=== PATIENT | male | born 1990 | race Caucasian/White ===

== ENCOUNTER 2021-01-26 14:20 | Inpatient (IN) | payer BC, SELFPAY ==
[2021-01-26 14:26] VITALS: BP 159/98; PULSE 140; RESP 20; TEMP 37.1; O2SAT 96
[2021-01-26] MEDS: LORazepam 2 mg Tablet PO ×2 (14:41→17:25)
--- NOTE | 2021-01-26 14:44 | PC.NURSE ---
One time ATIVAN Patient just arrived by ambulance from another facility and was very anxious, shaking and paranoid. One time dose 2 mg Ativan po given.
--- NOTE | 2021-01-26 15:45 | PM.NHP ---
Providers/Chief Complaint Admitting Physician: Brayan Conteh DO Chief Complaint: ANXIETY/DEPRESSION/OD HPI NPU History of Present Illness Donny Casiano is a 30 year old male with unclear past psychiatric history presented to an [facility] emergency department after overdosing intentionally on multiple medications to include fluoxetine, phentermine, another diet pill/medication, Topamax, hydroxyzine, and Benadryl. Patient was observed for 24 hours at [facility] emergency department with work-up remarkable for tachycardia, elevated BP, EKG did not demonstrate any prolonged QT, CBC, chemistry unremarkable, cardiac enzymes unremarkable. Urine drug screen was positive for cannabinoids. Patient's history is remarkable for seeing his primary care a couple days prior to presentation at which time he was prescribed fluoxetine. Patient had also gone to the emergency department prior to the referring hospital at which time he was evaluated and discharged. Patient is a difficult historian secondary to restlessness, stuttering, automatisms. Patient's history was mostly gathered by yes/no questions to the patient as well as brief responses and collateral information gathered from his , Leela, by telephone. Patient and patient's report that the patient had been reporting depressive symptoms for several weeks and states that he had previously been treated for depressive and anxiety symptoms but denies any past treatment by psychiatrist and denies any past psychiatric hospitalizations. Both the patient and his denies any past suicide attempts. Patient's reports that the patient has multiple family and life stressors. Patient states that he had not been feeling well and initially was taking the medication to get high but states that he subsequently took more medication with the intent of not being here. Patient states that he had been hearing voices after he started toxic ingestion. states that this may have happened over a couple of days of taking various pills. Patient denies having any psychotic symptoms at baseline. Psychiatric review of systems is negative otherwise. Review of Systems General: Reports: 10 or more systems reviewed and unremarkable except in HPI and below Meds NPU Allergies Allergy/AdvReac Type Severity Reaction Status Date / Time No Known Drug Allergies Allergy Unknown Verified 01/26/21 14:25 [facility] NPU Other Psychiatric History: Other Psychiatric History: Per HPI, denies any treatment by a psychiatrist, does report seeing primary care for depressive symptoms, treated with fluoxetine Denies any history of psychiatric hospitalization Denies any history of suicide attempt or self-harm behavior Mental Status Exam MSE Comments: Patient is extremely restless, jittery, unshaven, unkempt, disheveled, poor eye contact, fair rapport, patient's easily startled by loud noises Psychomotor activity is somewhat increased, no agitation Speech is halting, stuttering, not pressured I am scared, congruent affect, not labile Alert and oriented to person, place, time Memory and concentration are poor per interview Intellectual functioning is difficult to assess at this time Thought process, disjointed, linear but brief, no looseness of associations, no flight of ideas Thought content, paranoid, does not appear to be attending to any internal stimuli, no suicidal or homicidal ideation Insight and judgment appear to be limited Vitals/I&O/Wt Last Vital Signs Temp 98.7 F 01/26/21 14:26 Pulse 140 H 01/26/21 14:26 Resp 20 H 01/26/21 14:26 BP 159/98 01/26/21 14:26 Pulse Ox 96 01/26/21 14:26 Weight last 48 hrs Weight 136.078 kg A&P Assessment and plan (1) Overdose: Status: Acute Qualifiers: Encounter type: sequela Injury intent: intentional self-harm Qualified Code(s): T50.902S - Poisoning by unspecified drugs, medicaments and biological substances, intentional self-harm, sequela (2) Depression: Status: Acute Qualifiers: Depression Type: unspecified Qualified Code(s): F32.9 - Major depressive disorder, single episode, unspecified (3) Anxiety: Status: Acute (4) Cannabis abuse: Status: Acute Additional A&P Information Patient with unclear past psychiatric history recently seen by primary care for depressive and anxiety symptoms, patient with toxic ingestion of multiple anticholinergic medications as well as a couple stimulant weight loss medications. Patient states that he initially was trying to get high but then states that he took subsequent amounts as suicidal gesture. Report of ongoing depressive symptoms but currently denying any suicidal ideation. Patient would likely benefit from observation and holding any psychotropic medication while recovering from sequela of overdose. EKG from outlying emergency department did not demonstrate QT prolongation, labs did not demonstrate any metabolic disturbances. We will continue to monitor with labs, subsequent EKG INVOLUNTARY ADMIT to inpatient psychiatry Close observation CBC, CMP Ativan 2 mg by mouth now for restlessness, anxiety Encourage patient to rest Attestations NPU Medical Necessity Statement*: Psychiatric hospitalization is indicated at this time for observation for any suicidal ideation or behaviors, coordination for safe discharge Anticipate hospital stay to exceed 2 midnights Time Spent in Patient Care: Greater than 35 minutes (>than 50% of time spent in counselling and/or direct pt care on unit). Coding Level of Care Code Acute Custom Tailor for Lynn Slater Diagnoses Overdose T50.902S Encounter type: sequela Injury intent: intentional self-harm Depression F32.9 Depression Type: unspecified Anxiety F41.9 Cannabis abuse F12.10
[2021-01-26 17:02] LABS: Basophils # 0.1 10^3/uL (0.0-0.1); Basophils % 0.3 %; Eosinophils # 0.1 10^3/uL (0.0-0.8); Eosinophils % 0.5 %; Hematocrit 51.8 % (42.0-52.0); Lymphocytes # 1.5 10^3/uL (0.8-4.8); Lymphocytes % 9.5 %; Mean Corpuscular HGB Conc 34.7 g/dL (30.0-36.0); Mean Corpuscular Volume 89.2 fL (80-94); Mean Platelet Volume 12.4 fL (7.4-10.4); Monocytes # 1.2 10^3/uL (0.2-0.9); Neutrophils # 12.55 10^3/uL (1.8-7.7); Neutrophils % 80.8 %; Nucleated Red Blood Cells % 0 %; Platelet Count 198 10^3/cmm (130-400); Red Blood Count 5.81 10^6/uL (4.1-5.3); Red Cell Distribution Width 12.8 % (12.1-15.1); White Blood Count 15.5 10^3/uL (4.0-10.0)
[2021-01-26 17:36] LABS: Alanine Aminotransferase 28 U/L (0-41); Albumin Level 4.9 g/dL (3.5-5.2); Alkaline Phosphatase 76 IU/L (40-130); Anion Gap 20.1 (5-19); Aspartate Amino Transferase 29 U/L (0-40); Blood Urea Nitrogen 8 mg/dL (6-20); Calcium 9.6 mg/dL (8.5-10.5); Carbon Dioxide 23 mmol/L (22-29); Chloride 100 mmol/L (98-107); Creatinine Clr Calc Pharmacy 150.7153; Glomerular Filtration Rate 97.8 mL/min (90-130); Glucose 92 mg/dL (65-115); Osmolality Calculated 286 mOsm/kg (285-295); Potassium 4.1 mmol/L (3.5-5.1); Sodium 139 mmol/L (136-145); Total Bilirubin 2.1 mg/dL (0.15-1.2); Total Protein 7.9 g/dL (6.6-8.7)
[2021-01-26 19:39] VITALS: PULSE 114; RESP 17; TEMP 36.7; O2SAT 96
--- NOTE | 2021-01-26 20:00 | PC.NURSE ---
Pt condition Placed patient with a 1:1 sitter, pt cut his right 1st finger, and scratched up his left anterior forearm after digging out a piece of metal from the window frame. Nurse rylan saavedra, cleaned the window sill, placed a bandage on finger, no dressing needed for forearm, physician notified.
--- NOTE | 2021-01-26 22:10 | PC.NURSE ---
Pt behavior Pt displays seizure-like activity while with 1:1 in day room. Pt unable to control his head, arm, or body movements that seem to spasm, paranoid behavior, anxiety noted, diaphoretic, nauseated, tachypnea, RR 22, BP 159/98. pr 119. Physician notified, orders obtained for 1mg PO/IM Ativan q4h prn. Order placed, med nurse notified, and increasing observation from nursing staff until patient is more stable. Heart and Lung sounds are wnl at this time. Hx: Pt overdosed on several medications appx 3 days ago. Benedryl, Topamax, Phentomine, Zoloft, Prozac, and Hydroxyzine. No prior hx of psych placement or overdose attempts in the past pt states, I can not control my impulses, I saw the medications there, and I just kept taking them. Pt displayed impulsive actions earlier this evening by cutting himself with a piece of window metal shards he found in the sill. Tiny shaving. Pt restated this same terminology. I just saw it and could not stop, Im sorry. Pt states, Im afraid to eat anything, I don't want to gain any more weight. I will vomit it up if I eat it, I have been doing this a long time now. Pt has had three 16oz glasses of ice water since 1900. Maintaining hydration is a priority for this pt. Physician aware of pt condition.
[2021-01-26] MEDS: LORazepam 2 mg/mL INJ 1 mL 1 MG IM (22:20)
[2021-01-26 23:10] VITALS: BP 149/94; PULSE 134; RESP 22; TEMP 36.9; O2SAT 96
[2021-01-26] MEDS: blistex lip oint 7 gm Tube 1 APPLIC TOPICAL (23:30)
[2021-01-26] MEDS: ondansetron 4 MG Tablet PO (23:30)
--- NOTE | 2021-01-27 00:44 | PC.NURSE ---
At 2200 on 01/26/21, ARIANNA CAMACHO, found patient sitting in [address] foyer area looking out the window while in a tearful and anxious state. Pt confirmed SI, confirmed intentional injury to himself. Pt found a metal shard in the window sill caulking from the installation of plexiglass to the interior window installed for patient safety to cover the glass windows. It was a very tiny sliver of metal shaving, the patient surrrendered it to nurse without incident while apologizing. Pt stated, I can't help it, I had to do it. Nurse examined patient to see if there were any injuries to his skin. Two areas were affected by this event. The first is the anterior side of his right 1st finger, pt cut the finger, it was bleeding, this injury was cleaned and covered with a small bandage. Re-examined an hour later, bandage in place, no sign of infection noted. The second injury was to the anterior side of the left forearm, the patient scratched his arm several times, these are very superficial.No bandage applied at that time. Obtained a 1:1 PSA to sit with this patient, he continues to display anxiety and uncontrolled urges to harm himself. Pt was a direct admit who came to our NPU unit after intentional drug overdose. Pt impulsativity to self harm is not controlled at this time. Physician, Dr. Brayan Conteh,was informed of pt behavior, orders were received, and complete by nursing staff. Customs Port Director, Karen, was informed of event also . At 2330, Nursing staff applied nonstick pad with tegaderm coving to both of the anterior wrists, ID band, Fall band, and allergy band removed from pt wrists, he was attempting to cut himself with these bands. They are on the clipboard with the PSA sitter. Pt continues efforts to harm himself.
[2021-01-27 00:47] VITALS: BP 145/94; PULSE 99; RESP 18; TEMP 36.9; O2SAT 95
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
--- NOTE | 2021-01-27 03:01 | PC.NURSE ---
Approximately 2220 given Ativan 1 mg IM for severe anxiety, excess physical activity, jerking movements. The symptoms continued over several hours with decreasing intensity until he was able to go to bed to rest around 0145. He was given Zofran 4 mg po at 2330 for nausea symptoms. The nausea resolved after one hour.
[2021-01-27] MEDS: LORazepam 1 mg Tablet PO ×4 (05:54→22:15)
--- NOTE | 2021-01-27 05:54 | PC.NURSE ---
Ativan 1Mg PO given this morning for anxiety/agitation. Pt reports feeling less anxious than on admission. Jerky movements are less, pt rested better last night. Reports less paranoia.
[2021-01-27 05:55] VITALS: BP 157/103; PULSE 89; RESP 17; TEMP 36.2; O2SAT 100
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
--- NOTE | 2021-01-27 09:13 | ECG_ITS ---
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
--- NOTE | 2021-01-27 09:15 | P.PN_ITS ---
Subjective NPU Subjective: Interval history: Patient continues to be restless, shaky, stuttering but much easier to understand and much more controlled Reports some depressive symptoms, states that he has been having obsessive thoughts, especially about medications stating that he is concerned that if he is prescribed any medication that he may try to take too much of it Reports passive suicidal thoughts since last evaluation and had tried to scratch himself with a piece of metal he found on the windowsill in his room and was placed on one-to-one observation States that he had heard some voices while he was at the other hospital but currently denying any interval auditory or visual hallucinations, does describe some paranoia Patient has been given interval as needed Ativan 2 mg IM because he was reporting some nausea last evening Mental Status Exam MSE Comments: Patient sitting in a wheelchair in a foyer next to his room with a sitter, good eye contact, wearing hospital scrubs, unshaven, disheveled Psychomotor activity is restless, no agitation Speech continues to be halting with stuttering, normal volume, clear articulation, not pressured I feel a little better, constricted affect, not labile Alert and oriented to person, place, time, situation Memory and concentration appear to be fair per interview Thought process, linear but brief, no flight of ideas, no looseness of associ ations Thought content, some paranoia with no stated delusions, does not appear to be attending to any internal stimuli, some passive suicidal thoughts with no active intent or plan, no homicidal ideation Insight and judgment appear to be fair to intact Vitals/I&O/Wt Last Vital Signs Temp 97.2 F L 01/27/21 05:55 Pulse 89 01/27/21 05:55 Resp 17 01/27/21 05:55 BP 157/103 01/27/21 05:55 Pulse Ox 100 01/27/21 05:55 Weight last 48 hrs Weight 116.573 kg Weight 136.078 kg Data NPU : 01/26/21 16:52 01/26/21 16:52 A&P Assessment and plan (1) Overdose: Status: Acute Qualifiers: Encounter type: sequela Injury intent: intentional self-harm Qualified Code(s): T50.902S - Poisoning by unspecified drugs, medicaments and biological substances, intentional self-harm, sequela (2) Depression: Status: Acute Qualifiers: Depression Type: unspecified Qualified Code(s): F32.9 - Major depressive disorder, single episode, unspecified (3) Anxiety: Status: Acute (4) Cannabis abuse: Status: Acute Additional A&P Information Patient continues to be restless, stuttering with halting speech, reports sleeping some last night reports that he feels much improvement over how he felt initially at other hospital, labs with slightly elevated white count, renal function appears to be unremarkable, patient tolerating fluids and has been drinking water although reports feeling somewhat nauseous and not eating food but has been encouraged to eat some food in small amounts. Patient appears to have up sessions and depressive symptoms but will hold off on starting any antidepressant until his current sequela from toxic ingestion subsides and approaches baseline. Continue to provide symptomatic care for restlessness, anxiety from toxic ingestion EKG to monitor for any arrhythmia, QT Encouraged patient to participate in unit milieu, group sessions CONTINUE one-to-one Involuntary Hold Information 96 Hour Hold: 96 Hour Involuntary Admission: No Attestations NPU Medical Necessity Statement*: Continues to require psychiatric hospitalization for toxic ingestion, monitoring, coordination for safe discharge Coding Level of Care Code Acute Explosive Specialist for [facility] 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
[2021-01-27 09:57] LABS: Glucose Point of Care 107 mg/dL (70-110)
[2021-01-27 10:03] LABS: Basophils # 0.1 10^3/uL (0.0-0.1); Basophils % 0.5 %; Eosinophils # 0.1 10^3/uL (0.0-0.8); Eosinophils % 0.5 %; Hematocrit 50.2 % (42.0-52.0); Hemoglobin 17.1 g/dL (11.7-16.6); Lymphocytes # 0.8 10^3/uL (0.8-4.8); Lymphocytes % 7.7 %; Mean Corpuscular HGB Conc 34.1 g/dL (30.0-36.0); Mean Corpuscular Hemoglobin 30.6 pg (28.0-34.0); Mean Platelet Volume 11.9 fL (7.4-10.4); Monocytes % 9.7 %; Neutrophils # 8.27 10^3/uL (1.8-7.7); Neutrophils % 80.5 %; Nucleated Red Blood Cells % 0 %; Platelet Count 182 10^3/cmm (130-400); Red Blood Count 5.58 10^6/uL (4.1-5.3); Red Cell Distribution Width 12.5 % (12.1-15.1); White Blood Count 10.3 10^3/uL (4.0-10.0)
[2021-01-27 10:31] LABS: Alanine Aminotransferase 27 U/L (0-41); Albumin Level 4.6 g/dL (3.5-5.2); Alkaline Phosphatase 74 IU/L (40-130); Anion Gap 20.6 (5-19); Aspartate Amino Transferase 28 U/L (0-40); Blood Urea Nitrogen 9 mg/dL (6-20); Calcium 8.8 mg/dL (8.5-10.5); Carbon Dioxide 22 mmol/L (22-29); Chloride 96 mmol/L (98-107); Creatine Phosphokinase 178 U/L (39-308); Creatinine Clr Calc Pharmacy 150.7153; Globulin 2.8 g/dL (1.3-4.6); Glomerular Filtration Rate 97.8 mL/min (90-130); Glucose 98 mg/dL (65-115); Osmolality Calculated 279 mOsm/kg (285-295); Potassium 3.6 mmol/L (3.5-5.1); Sodium 135 mmol/L (136-145); Total Bilirubin 2.2 mg/dL (0.15-1.2); Total Protein 7.4 g/dL (6.6-8.7)
--- NOTE | 2021-01-27 12:46 | PC.NURSE ---
Addendum entered by Gerald Chavez RN 01/27/21 13:03: PRN MED MED EFFECTIVE , PT MUCH LESS ANXIOUS, WILL CONTINUE TO MONITOR. Original Note: PRN MED PT GIVEN 1MG ATIVAN PO FOR ANXIETY, PT VERY ANXIOUS & NERVOUS, WILL CONTINUE TO MONITOR.
[2021-01-27 14:00] VITALS: BP 131/96; PULSE 96; RESP 18; TEMP 36.8; O2SAT 95
--- NOTE | 2021-01-27 16:42 | PC.NURSE ---
Patient offered prn ativan for anxiety, patient stated he would take it. Patient in day room sitting at the table, bouncing and shaking legs.
--- NOTE | 2021-01-27 17:40 | PC.NURSE ---
Patient resting calmly in angel by room , asked how he was feeling and how medication worked stated he feels better now.
[2021-01-27 22:00] VITALS: BP 136/98; PULSE 93; RESP 18; TEMP 37.2; O2SAT 98
[2021-01-27] MEDS: ondansetron 4 MG Tablet PO (22:19)
[2021-01-27 22:28] LABS: Glucose Point of Care 90 mg/dL (70-110)
[2021-01-28 06:00] VITALS: BP 132/89; PULSE 78; RESP 18; TEMP 36.5; O2SAT 96
[2021-01-28] MEDS: LORazepam 1 mg Tablet PO ×3 (07:42→22:34)
--- NOTE | 2021-01-28 11:39 | PM.NPN ---
Subjective NPU Subjective: Interval history: Patient continues to report some anxiety symptoms, transient depressive symptoms, paranoid ideation Patient was somewhat reluctant and evasive with interviewer but had shared with another staff member that he had been going out of state to a dispensary for marijuana in addition to taking many of his and his 's medication to help with his upset stomach. Patient initially stated that he had 8 some of his breakfast but then felt guilty and related that he had spit up his food into his coffee cup Mental Status Exam MSE Comments: Sitting in his room, poor eye contact, wearing hospital scrubs, nervous appearing Psychomotor activity is neither increased nor decreased, no agitation Speech continues to be halting with stuttering, normal volume, clear articulation, not pressured I feel anxious, constricted affect, not labile Alert and oriented to person, place, time, situation Memory and concentration appear to be fair per interview Thought process, linear, no flight of ideas, no looseness of associations Thought content, some paranoia with no stated delusions, no hallucinations, no homicidal ideation Insight and judgment appear to be fair to intact Vitals/I&O/Wt Last Vital Signs Temp 97.7 F 01/28/21 06:00 Pulse 78 01/28/21 06:00 Resp 18 01/28/21 06:00 BP 132/89 01/28/21 06:00 Pulse Ox 96 01/28/21 06:00 Weight last 48 hrs Weight 116.573 kg Weight 136.078 kg Data NPU : 01/27/21 09:54 01/27/21 09:54 A&P Assessment and plan (1) Overdose: Status: Acute Qualifiers: Encounter type: sequela Injury intent: intentional self-harm Qualified Code(s): T50.902S - Poisoning by unspecified drugs, medicaments and biological substances, intentional self-harm, sequela (2) Depression: Status: Acute Qualifiers: Depression Type: unspecified Qualified Code(s): F32.9 - Major depressive disorder, single episode, unspecified (3) Anxiety: Status: Acute (4) Cannabis abuse: Status: Acute Additional A&P Information Patient continues to have halting speech, stuttering, nervous, anxious appearing, intermittent depressive symptoms, reports some paranoia but denies any auditory hallucinations, denies any suicidal ideation CONTINUE current medication, continue to monitor We will likely start low-dose antidepressant targeting obsessions, anxiety and depressive symptoms tomorrow Involuntary Hold Information 96 Hour Hold: 96 Hour Involuntary Admission: No Attestations NPU Medical Necessity Statement*: Continues to require psychiatric hospitalization for medication stabilization, coordination for safe discharge Coding Level of Care Code Acute Counter Intelligence Agent for Lynn Slater Diagnoses Overdose T50.250T Encounter type: sequela Injury intent: intentional self-harm Depression F32.9 Depression Type: unspecified Anxiety F41.9 Cannabis abuse F12.10
[2021-01-28 14:00] VITALS: BP 132/89; PULSE 78; RESP 18; TEMP 36.5; O2SAT 96
[2021-01-28] MEDS: CLONazepam 0.5 mg Tablet PO ×2 (14:22→17:18)
[2021-01-28 18:48] VITALS: BP 121/79; PULSE 83; RESP 20; TEMP 36.6; O2SAT 95
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
[2021-01-29 06:00] VITALS: BP 133/88; PULSE 82; RESP 18; TEMP 37.2; O2SAT 96
[2021-01-29] MEDS: CLONazepam 0.5 mg Tablet PO (08:50)
[2021-01-29] MEDS: OLANZapine 5 mg ODT PO (11:26)
--- NOTE | 2021-01-29 11:30 | PC.NURSE ---
PRN Zyprexa Zydis Patient was showing signs of anxiety. He was shaking and paranoid. Given Zyprexa Zydis 5 mg po.
[2021-01-29] MEDS: fluoxetine 20 mg Capsule PO (11:37)
--- NOTE | 2021-01-29 11:45 | P.PN_ITS ---
Subjective NPU Subjective: Interval history: During interview, reports feeling much better today, less anxiety, no panic symptoms but subsequently has an event where he has panic symptoms in his room requiring as needed medication Denies any interval depressive symptoms, denied any suicidal ideation Continues to report obsessive thoughts Denies any auditory or visual destinations, denies any delusions although reports some suspiciousness, overvalued ideas Mental Status Exam MSE Comments: Sitting in the day room, good eye contact, appropriately groomed and dressed wearing hospital scrubs, calm, cooperative Psychomotor activity is neither increased nor decreased, no agitation Speech is more articulate, with no stuttering, normal volume, not pressured I feel much better, full range affect, not labile Alert and oriented to person, place, time, situation Memory and concentration appear to be intact per interview Thought process, linear, no flight of ideas, no looseness of associations Thought content, some overvalued ideas, no stated delusions, no hallucinations, no homicidal ideation Insight and judgment appear to be fair to intact Vitals/I&O/Wt Last Vital Signs Temp 98.9 F 01/29/21 06:00 Pulse 82 01/29/21 06:00 Resp 18 01/29/21 06:00 BP 133/88 01/29/21 06:00 Pulse Ox 96 01/29/21 06:00 Data NPU : 01/27/21 09:54 01/27/21 09:54 A&P Assessment and plan (1) Overdose: Status: Acute Qualifiers: Encounter type: sequela Injury intent: intentional self-harm Qualified Code(s): T50.902S - Poisoning by unspecified drugs, medicaments and biological substances, intentional self-harm, sequela (2) Depression: Status: Acute Qualifiers: Depression Type: unspecified Qualified Code(s): F32.9 - Major depressive disorder, single episode, unspecified (3) Anxiety: Status: Acute (4) Cannabis abuse: Status: Acute Additional A&P Information Patient appears to be improved but has what appears to be stress related anxiety attacks, improved speech, no interval depressive symptoms, no suicidal ideation INCREASE to clonazepam 1 mg twice daily targeting anxiety START fluoxetine 20 mg daily targeting anxiety and depressive symptoms, obsessions Involuntary Hold Information 96 Hour Hold: 96 Hour Involuntary Admission: No Attestations NPU Medical Necessity Statement*: Continues to require psychiatric hospitalization for medication stabilization, coordination for safe discharge Coding Level of Care Code 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
[2021-01-29 14:00] VITALS: BP 96/63; PULSE 69; RESP 16; TEMP 36.3; O2SAT 97
[2021-01-29] MEDS: CLONazepam 1 mg Tablet PO (19:39)
[2021-01-29 19:58] VITALS: BP 129/74; PULSE 119; RESP 8; TEMP 36.9; O2SAT 96
[2021-01-30 06:00] VITALS: BP 121/84; PULSE 91; RESP 18; TEMP 36.3; O2SAT 98
[2021-01-30] MEDS: CLONazepam 1 mg Tablet PO ×2 (08:06→19:52)
[2021-01-30] MEDS: fluoxetine 20 mg Capsule PO (08:06)
--- NOTE | 2021-01-30 12:02 | PM.NPN ---
Subjective NPU Subjective: Interval history: Continues to report anxiety symptoms with intermittent panic symptoms with last episode occurring yesterday afternoon Denies any interval depressive symptoms, denies any suicidal ideation Continues to report obsessions and states that he has thoughts about compulsions with particular concerns about overeating Reports being compliant with medication with no reports of any medication side effects States that his appetite has been improving although reading continues to make him anxious Reports that he slept well after some initial anxiety of having a male sitter in his room Mental Status Exam MSE Comments: Sitting in the day room eating lunch, good eye contact, appropriately groomed and dressed wearing hospital scrubs, calm, cooperative Psychomotor activity is neither increased nor decreased, no agitation Speech is more articulate, with no stuttering, normal volume, not pressured I feel pretty good, full range affect, not labile Alert and oriented to person, place, time, situation Memory and concentration appear to be intact per interview Thought process, linear, no flight of ideas, no looseness of associations Thought content, some overvalued ideas, no stated delusions, no hallucinations, no homicidal ideation Insight and judgment appear to be fair to intact Vitals/I&O/Wt Last Vital Signs Temp 97.4 F L 01/30/21 06:00 Pulse 91 01/30/21 06:00 Resp 18 01/30/21 06:00 BP 121/84 01/30/21 06:00 Pulse Ox 98 01/30/21 06:00 Data NPU : 01/27/21 09:54 01/27/21 09:54 A&P Assessment and plan (1) Overdose: Status: Acute Qualifiers: Encounter type: sequela Injury intent: intentional self-harm Qualified Code(s): T50.902S - Poisoning by unspecified drugs, medicaments and biological substances, intentional self-harm, sequela (2) Depression: Status: Acute Qualifiers: Depression Type: unspecified Qualified Code(s): F32.9 - Major depressive disorder, single episode, unspecified (3) Anxiety: Status: Acute (4) Cannabis abuse: Status: Acute (5) Obsessive compulsive disorder: Status: Acute Qualifiers: Obsessive-compulsive disorder type: unspecified Qualified Code(s): F42.9 - Obsessive-compulsive disorder, unspecified Additional A&P Information Patient continues to report up sessions as well as fears of compulsions to include overeating which had earlier caused him to not eat any of his food, continues to have some anxiety and panic symptoms typically related to food or concerns about overtaking medications, denies any suicidal ideation INCREASE to fluoxetine 40 mg daily targeting mood, obsessions, anxiety Involuntary Hold Information 96 Hour Hold: 96 Hour Involuntary Admission: No Attestations NPU Medical Necessity Statement*: Continues to require psychiatric hospitalization for medication stabilization, coordination for safe discharge Coding Level of Care Code Acute Organizational Development Consultant for Lynn Slater Diagnoses Overdose T50.856G Encounter type: sequela Injury intent: intentional self-harm Depression F32.9 Depression Type: unspecified Anxiety F41.9 Cannabis abuse F12.10 Obsessive compulsive disorder F42.9 Obsessive-compulsive disorder type: unspecified
[2021-01-30 14:00] VITALS: BP 106/71; PULSE 83; RESP 17; TEMP 36.3; O2SAT 97
[2021-01-30 19:06] VITALS: BP 110/75; PULSE 103; RESP 23; TEMP 37.1; O2SAT 97
[2021-01-30] MEDS: trazodone 50 mg Tablet PO (21:37)
--- NOTE | 2021-01-30 21:40 | PC.NURSE ---
PT CAME TO DESK REQUESTING SOMETHING TO HELP HIM SLEEP. TRAZODONE 50MG PO GIVEN.
[2021-01-30] MEDS: OLANZapine 5 mg ODT PO (22:00)
--- NOTE | 2021-01-30 22:06 | PC.NURSE ---
PT NOTED TO BE PACING UP AND DOWN HALLWAY. PT STATES HE IS VERY ANXIOUS. ZYPREXA 5MG PO GIVEN.
--- NOTE | 2021-01-30 23:07 | PC.NURSE ---
PT CONTINUES TO BE AWAKE, TOSSING AND TURNING IN BED. STATES HE JUST CAN'T FALL ASLEEP .
--- NOTE | 2021-01-31 01:00 | PC.NURSE ---
PT FINALLY RESTING WITH BOTH EYES CLOSED.
--- NOTE | 2021-01-31 01:54 | PC.NURSE ---
Patient is resting at this time, no concerns noted at this time.
[2021-01-31 06:00] VITALS: BP 124/68; PULSE 72; RESP 19; TEMP 36.6; O2SAT 96
[2021-01-31] MEDS: CLONazepam 1 mg Tablet PO ×2 (07:45→20:37)
[2021-01-31] MEDS: fluoxetine 20 mg Capsule 40 MG PO (07:45)
--- NOTE | 2021-01-31 12:13 | PM.NPN ---
Subjective NPU Subjective: Interval history: Continues to report anxiety symptoms, obsessions, denies any interval panic symptoms but does report transient heightened anxiety for several minutes Denies any interval depressive symptoms, denies any suicidal ideation Reports being compliant with his medication, denies any medication side effects Participates in unit milieu, group sessions, no reports of any behavioral disturbances Reports improved appetite Mental Status Exam MSE Comments: Appropriately groomed and dressed, calm, cooperative, interactive, sitting in the day room eating lunch, good eye contact Psychomotor activity is neither increased nor decreased, no agitation Speech is normal rate, normal volume, not pressured I feel good, full range affect, not labile Alert and oriented to person, place, time, situation Memory and concentration appear to be intact per interview Thought process, linear, no flight of ideas, no looseness of associations Thought content, some overvalued ideas, no stated delusions, no hallucinations, no homicidal ideation Insight and judgment appear to be fair to intact Vitals/I&O/Wt Last Vital Signs Temp 97.8 F 01/31/21 06:00 Pulse 72 01/31/21 06:00 Resp 19 H 01/31/21 06:00 BP 124/68 01/31/21 06:00 Pulse Ox 96 01/31/21 06:00 01/30/21 01/31/21 01/31/21 22:59 06:59 14:59 Intake Total 240 / 240 Balance 240 / 240 Data NPU : 01/27/21 09:54 01/27/21 09:54 A&P Assessment and plan (1) Overdose: Status: Acute Qualifiers: Encounter type: sequela Injury intent: intentional self-harm Qualified Code(s): T50.902S - Poisoning by unspecified drugs, medicaments and biological substances, intentional self-harm, sequela (2) Obsessive compulsive disorder: Status: Acute Qualifiers: Obsessive-compulsive disorder type: unspecified Qualified Code(s): F42.9 - Obsessive-compulsive disorder, unspecified (3) Depression: Status: Acute Qualifiers: Depression Type: unspecified Qualified Code(s): F32.9 - Major depressive disorder, single episode, unspecified (4) Anxiety: Status: Acute (5) Cannabis abuse: Status: Acute Additional A&P Information Patient continues report of sessions but reports some improvement in anxiety symptoms, improved sleep, improved appetite although continues to have some obsessions about food INCREASE to fluoxetine 60 mg daily CONTINUE clonazepam 1 mg twice daily with plan to start taper in the next couple days Involuntary Hold Information 96 Hour Hold: 96 Hour Involuntary Admission: No Attestations NPU Medical Necessity Statement*: Continues to require psychiatric hospitalization for medication stabilization, coordination for safe discharge Coding Level of Care Code Acute Ultrasound Applications Specialist for Lynn Slater Diagnoses Overdose T50.145Q Encounter type: sequela Injury intent: intentional self-harm Obsessive compulsive disorder F42.9 Obsessive-compulsive disorder type: unspecified Depression F32.9 Depression Type: unspecified Anxiety F41.9 Cannabis abuse F12.10
--- NOTE | 2021-01-31 13:54 | PC.NURSE ---
pt sick to his stomach, stated he threw up half of his lunch prn Zofran offered, pt declined at this time.
[2021-01-31 14:00] VITALS: BP 127/87; PULSE 100; RESP 20; TEMP 36.9; O2SAT 95
--- NOTE | 2021-01-31 20:11 | PC.NURSE ---
Patient is ambulating the hallways. Patient has been cooperative and calm. Patient spoke with his .
[2021-01-31 20:28] VITALS: BP 123/86; PULSE 90; RESP 16; TEMP 37; O2SAT 95
[2021-02-01 06:00] VITALS: BP 118/78; PULSE 67; RESP 17; TEMP 36.8; O2SAT 98
[2021-02-01] MEDS: CLONazepam 1 mg Tablet PO (08:53)
[2021-02-01] MEDS: fluoxetine 20 mg Capsule 60 MG PO (08:54)
--- NOTE | 2021-02-01 12:13 | P.PN_ITS ---
Subjective NPU Subjective: Interval history: Reports improvement in anxiety, denies any interval panic symptoms although states that he continues to be somewhat nervous, particularly about his transition back home Denies any interval depressive symptoms, denies any suicidal ideation Reports ongoing obsessions, preoccupation about eating and food Reports being compliant with medication, denies any medication side effects Mental Status Exam 2 MSE Comments: Sitting in the day room, polite, interactive, good eye contact, appropriately groomed and dressed wearing hospital scrubs Psychomotor activity is neither increased nor decreased, no agitation Speech is normal rate, normal volume, not pressured Pretty good, full range affect, not labile Alert and oriented to person, place, time, situation Memory and concentration appear to be intact per interview Thought process, linear, no flight of ideas, no looseness of associations Thought content, some overvalued ideas, no stated delusions, no hallucinations, no homicidal ideation Insight and judgment appear to be fair to intact Vitals/I&O/Wt Last Vital Signs Temp 98.3 F 02/01/21 06:00 Pulse 67 02/01/21 06:00 Resp 17 02/01/21 06:00 BP 118/78 02/01/21 06:00 Pulse Ox 98 02/01/21 06:00 Data NPU : 01/27/21 09:54 01/27/21 09:54 A&P Assessment and plan (1) Overdose: Status: Acute Qualifiers: Encounter type: sequela Injury intent: intentional self-harm Qualified Code(s): T50.902S - Poisoning by unspecified drugs, medicaments and biological substances, intentional self-harm, sequela (2) Obsessive compulsive disorder: Status: Acute Qualifiers: Obsessive-compulsive disorder type: unspecified Qualified Code(s): F42.9 - Obsessive-compulsive disorder, unspecified (3) Depression: Status: Acute Qualifiers: Depression Type: unspecified Qualified Code(s): F32.9 - Major depressive disorder, single episode, unspecified (4) Anxiety: Status: Acute (5) Cannabis abuse: Status: Acute Additional A&P Information Continued improvement, continuing taper of clonazepam DECREASE to clonazepam 0.25 mg twice daily CONTINUE fluoxetine 60 mg daily targeting anxiety, obsessions Involuntary Hold Information 96 Hour Hold: 96 Hour Involuntary Admission: No Attestations NPU Medical Necessity Statement*: Continues to require psychiatric hospitalization for medication stabilization Coding Level of Care Code Acute Artificial Foliage Arranger for Chg Fwd Diagnoses Overdose T50.901C Encounter type: sequela Injury intent: intentional self-harm Obsessive compulsive disorder F42.9 Obsessive-compulsive disorder type: unspecified Depression F32.9 Depression Type: unspecified Anxiety F41.9 Cannabis abuse F12.10
[2021-02-01 14:00] VITALS: BP 117/74; PULSE 71; RESP 20; TEMP 37.1; O2SAT 96
[2021-02-01] MEDS: CLONazepam 0.5 mg Tablet 0.25 MG PO ×2 (16:42→21:09)
[2021-02-01] MEDS: OLANZapine 5 mg ODT PO (20:57)
[2021-02-01] MEDS: trazodone 50 mg Tablet PO (20:57)
[2021-02-01] MEDS: ondansetron 4 MG Tablet PO (20:57)
[2021-02-01] MEDS: benztropine 1 mg Tablet PO (20:57)
[2021-02-01 21:32] VITALS: BP 128/79; PULSE 70; RESP 20; TEMP 36.8; O2SAT 96
[2021-02-01] MEDS: nicotine 2 mg Gum BUCCAL (21:40)
[2021-02-02 05:59] VITALS: BP 123/85; PULSE 96; RESP 20; TEMP 36.6; O2SAT 99
--- NOTE | 2021-02-02 06:35 | PC.NURSE ---
[facility] [place], PHONE [phone]
[2021-02-02] MEDS: CLONazepam 0.5 mg Tablet 0.25 MG PO ×2 (08:21→20:22)
[2021-02-02] MEDS: lisinopril 5 mg Tablet PO (08:22)
[2021-02-02] MEDS: fluoxetine 20 mg Capsule 60 MG PO (08:22)
[2021-02-02 08:29] LABS: Basophils % 0.4 %; Eosinophils # 0.1 10^3/uL (0.0-0.8); Eosinophils % 1.5 %; Hematocrit 45.8 % (42.0-52.0); Hemoglobin 15.8 g/dL (11.7-16.6); Lymphocytes # 1.4 10^3/uL (0.8-4.8); Lymphocytes % 17.4 %; Mean Corpuscular HGB Conc 34.5 g/dL (30.0-36.0); Mean Corpuscular Hemoglobin 30.6 pg (28.0-34.0); Mean Corpuscular Volume 88.8 fL (80-94); Mean Platelet Volume 12.5 fL (7.4-10.4); Monocytes # 0.7 10^3/uL (0.2-0.9); Monocytes % 8.7 %; Neutrophils # 5.53 10^3/uL (1.8-7.7); Neutrophils % 71.1 %; Nucleated Red Blood Cells % 0 %; Platelet Count 176 10^3/cmm (130-400); Red Blood Count 5.16 10^6/uL (4.1-5.3); Red Cell Distribution Width 12.5 % (12.1-15.1); White Blood Count 7.8 10^3/uL (4.0-10.0)
[2021-02-02 08:48] LABS: Alanine Aminotransferase 23 U/L (0-41); Albumin Level 4.4 g/dL (3.5-5.2); Alkaline Phosphatase 62 IU/L (40-130); Anion Gap 15.8 (5-19); Aspartate Amino Transferase 21 U/L (0-40); Blood Urea Nitrogen 7 mg/dL (6-20); Calcium 8.9 mg/dL (8.5-10.5); Carbon Dioxide 27 mmol/L (22-29); Chloride 97 mmol/L (98-107); Creatine Phosphokinase 112 U/L (39-308); Globulin 2.1 g/dL (1.3-4.6); Glomerular Filtration Rate 130.7 mL/min (90-130); Glucose 87 mg/dL (65-115); Osmolality Calculated 277 mOsm/kg (285-295); Potassium 4.8 mmol/L (3.5-5.1); Sodium 135 mmol/L (136-145); Total Bilirubin 1.6 mg/dL (0.15-1.2); Total Protein 6.5 g/dL (6.6-8.7)
[2021-02-02] MEDS: fluoxetine 20 mg Capsule PO (09:24)
--- NOTE | 2021-02-02 13:36 | PM.NPN ---
Subjective NPU Subjective: Interval history: Continues to report anxiety symptoms but states that he feels much better than at the time of admission, denies any interval panic symptoms Patient continues to report some anxiety surrounding eating and obsessions about eating too much as well as concerns about taking too much of his medication but feels reassured that he can develop a plan with his about having his medication given to him Denies any auditory or visual hallucinations Denies any depressive symptoms, denies any suicidal ideation Reports being compliant with his medication and denies any medication side effects Mental Status Exam MSE Comments: Sitting on his bed, calm, cooperative, interactive, good eye contact, appropriately groomed and dressed wearing hospital scrubs Psychomotor activity is neither increased nor decreased, no agitation Speech is normal rate, normal volume, not pressured Okay, full range affect, not labile Alert and oriented to person, place, time, situation Memory and concentration appear to be intact per interview Thought process, linear, no flight of ideas, no looseness of associations Thought content, some overvalued ideas, no stated delusions, no hallucinations, no homicidal ideation Insight and judgment appear to be fair to intact Vitals/I&O/Wt Last Vital Signs Temp 97.9 F 02/02/21 05:59 Pulse 96 02/02/21 05:59 Resp 20 H 02/02/21 05:59 BP 123/85 02/02/21 05:59 Pulse Ox 99 02/02/21 05:59 Data NPU : 02/02/21 08:19 02/02/21 08:19 A&P Assessment and plan (1) Overdose: Status: Acute Qualifiers: Encounter type: sequela Injury intent: intentional self-harm Qualified Code(s): T50.902S - Poisoning by unspecified drugs, medicaments and biological substances, intentional self-harm, sequela (2) Obsessive compulsive disorder: Status: Acute Qualifiers: Obsessive-compulsive disorder type: unspecified Qualified Code(s): F42.9 - Obsessive-compulsive disorder, unspecified (3) Depression: Status: Acute Qualifiers: Depression Type: unspecified Qualified Code(s): F32.9 - Major depressive disorder, single episode, unspecified (4) Anxiety: Status: Acute (5) Cannabis abuse: Status: Acute Additional A&P Information Improving, continues to report some anxiety but states significantly improved, feels less impaired, ongoing obsessions CONTINUE current medication, continue to monitor Involuntary Hold Information 96 Hour Hold: 96 Hour Involuntary Admission: No Attestations NPU Medical Necessity Statement*: Continues to require psychiatric hospitalization for medication stabilization Coding Level of Care Code Acute Environmental Journalist for g Fwd Diagnoses Overdose T50.902S Encounter type: sequela Injury intent: intentional self-harm Obsessive compulsive disorder F42.9 Obsessive-compulsive disorder type: unspecified Depression F32.9 Depression Type: unspecified Anxiety F41.9 Cannabis abuse F12.10
[2021-02-02 14:00] VITALS: BP 98/60; PULSE 87; RESP 16; TEMP 37.3; O2SAT 95
[2021-02-02 21:39] VITALS: BP 112/69; PULSE 65; RESP 18; TEMP 36.7; O2SAT 96
[2021-02-03 06:00] VITALS: BP 119/75; PULSE 87; RESP 18; TEMP 36.3; O2SAT 99
[2021-02-03] MEDS: fluoxetine 20 mg Capsule 80 MG PO (09:12)
[2021-02-03] MEDS: lisinopril 5 mg Tablet PO (09:13)
[2021-02-03] MEDS: CLONazepam 0.5 mg Tablet 0.25 MG PO (09:13)
--- NOTE | 2021-02-03 09:42 | PM.NDC ---
Diagnoses at Discharge Discharge Diagnosis (1) Overdose: Status: Acute Qualifiers: Encounter type: sequela Injury intent: intentional self-harm Qualified Code(s): T50.902S - Poisoning by unspecified drugs, medicaments and biological substances, intentional self-harm, sequela (2) Obsessive compulsive disorder: Status: Acute Qualifiers: Obsessive-compulsive disorder type: unspecified Qualified Code(s): F42.9 - Obsessive-compulsive disorder, unspecified (3) Depression: Status: Acute Qualifiers: Depression Type: unspecified Qualified Code(s): F32.9 - Major depressive disorder, single episode, unspecified (4) Anxiety: Status: Acute (5) Cannabis abuse: Status: Acute Reason for Visit Reason for Visit: ANXIETY/DEPRESSION/OD Hospital Course Hospital Course 30 year old male with unclear past psychiatric history presented to an [facility] emergency department after overdosing intentionally on multiple medications to include fluoxetine, phentermine, another diet pill/medication, Topamax, hydroxyzine, and Benadryl. Patient was observed for 24 hours at [facility] emergency department with work-up remarkable for tachycardia, elevated BP, EKG did not demonstrate any prolonged QT, CBC, chemistry unremarkable, cardiac enzymes unremarkable. Urine drug screen was also positive for cannabinoids which the patient states that he had been taking because of his abdominal discomfort related to his anxiety symptoms. Patient demonstrated severe anxiety symptoms as well as communicating ongoing obsessions related to his eating and various other rituals that cause significant impairment. Patient was also demonstrating stuttering as well as motor tics which appear to be unclear with his toxic ingestion versus severe anxiety. Patient was started on fluoxetine which was titrated up to fluoxetine 80 mg daily. Patient was having several panic attacks and anxiety related symptoms and was started on clonazepam which was scheduled and titrated up to clonazepam 1 mg twice daily in conjunction with Ativan as needed with eventual discontinuation of the Ativan and tapering off of clonazepam prior to discharge. Patient reported improvement in his anxiety symptoms with no stuttering or other motor tics that he was demonstrating at the time of his initial evaluation. Patient participate in unit activities to include group sessions and unit milieu with no reports of any behavioral disturbances. Patient was not suicidal and did not endorse any depressive symptoms at the time of discharge and did not appear to pose any threat of harm to self or others. Low to moderate risk of harm to self given no current suicidal ideation and no endorsement of any psychiatric symptoms although patient's risk may be elevated if he continues to use any substances or continues to demonstrate impulsive, unexpected behavior in the context of his obsessions although this risk has been mitigated by titrating up on fluoxetine with reported improvement of his anxiety and obsessions. Risk medication also included psychiatric hospitalization for medication stabilization, recommendation to abstain from use of any substances or alcohol as well as coordination for post discharge follow-up. Patient was able communicate his understanding of the need to abstain from use of any substances and alcohol as well as the need for compliance with his medication, medication management and therapy follow-up in order to further mitigate his risk of harm to self and others. Involuntary Hold Information 96 Hour Hold: 96 Hour Involuntary Admission: No Mental Status Exam MSE Comments: Sitting in the day room, polite, interactive, interactive, good eye contact, appropriately groomed and dressed wearing hospital scrubs Psychomotor activity is neither increased nor decreased, no agitation Speech is normal rate, normal volume, not pressured Pretty good, full range affect, not labile Alert and oriented to person, place, time, situation Memory and concentration appear to be intact per interview Thought process, linear, no flight of ideas, no looseness of associations Thought content, some overvalued ideas, no stated delusions, no hallucinations, no homicidal ideation Insight and judgment appear to be fair to intact Discharge Data Vitals: Last Vital Signs Temp 97.3 F L 02/03/21 06:00 Pulse 87 02/03/21 06:00 Resp 18 02/03/21 06:00 BP 119/75 02/03/21 06:00 Pulse Ox 99 02/03/21 06:00 Discharge Plan Discharge Patient Disposition: Home Condition: Stable Prescriptions: New fluoxetine 20 mg Capsule 80 mg PO DAILY Qty: 30 RF: 0 Continued lisinopril 5 mg tablet 5 mg PO DAILY RF: 0 pantoprazole 40 mg tablet,delayed release (DR/EC) 40 mg PO DAILY RF: 0 Discontinued fluoxetine 10 mg tablet 10 mg PO DAILY RF: 0 ondansetron 4 mg tablet,disintegrating 4 mg PO PRN RF: 0 Discharge Orders: Discharge Order (Routine); Ordered 02/03/21 Ordered By: Brayan Conteh Referrals: Dr Ayala, [facility] [Other] - 02/07/21 11:00 am (This is a followup for Medication management) Que Meyer-Counselor [facility] [Other] - 03/02/21 1:00 pm (Initial assessment for therapy) [facility] [Other] (On Outpatient waiting list for Rehab) Discharge Diet: Regular Discharge Activity: Resume usual activity Patient Instructions: Opioid Safety Discharge Attestations NPU Time Spent in Discharge Care*: greater than 30 min Status at Discharge: Cognitive status at discharge: cognitively intact, Behavioral status at discharge: cooperative, Functional status at discharge: independent ambulation Overall status at discharge: patient is back to baseline Coding Level of Care Code Acute g FW DC note Diagnoses Overdose T50.902S Encounter type: sequela Injury intent: intentional self-harm Obsessive compulsive disorder F42.9 Obsessive-compulsive disorder type: unspecified Depression F32.9 Depression Type: unspecified Anxiety F41.9 Cannabis abuse F12.10
[2021-02-03 10:17] VITALS: BP 119/75; PULSE 87; RESP 18; TEMP 36.3; O2SAT 99
== END 2021-02-03 11:57 | disposition home or self-care (01) | DRG 918 ==
PROVIDERS: Admitting Provider Psychiatry & Neurology Psychiatry; Visit Provider Psychiatry & Neurology Psychiatry
DX: T50.912A Poisoning by multiple unspecified drugs, medicaments and biological substances, intentional self-harm, initial encounter (principal); F12.10 Cannabis abuse, uncomplicated; F41.9 Anxiety disorder, unspecified; F32.9 Major depressive disorder, single episode, unspecified; R46.81 Obsessive-compulsive behavior
CPT/HCPCS: 36415; 36416; 80053; 82550; 82962; 85025; 93005; 96372; J2060; Q0162

== ENCOUNTER 2021-03-27 18:24 | Inpatient (IN) | payer BC, SELFPAY ==
[2021-03-27 18:32] VITALS: BP 136/84; PULSE 75; RESP 17; TEMP 37.2; O2SAT 98
[2021-03-27] MEDS: nicotine 2 mg Gum BUCCAL (20:32)
[2021-03-27 20:48] VITALS: BP 126/85; PULSE 85; RESP 18; TEMP 36.4; O2SAT 97
[2021-03-28 06:00] VITALS: BP 121/82; PULSE 80; RESP 15; TEMP 36.2; O2SAT 95
[2021-03-28 13:47] VITALS: BP 135/62; PULSE 75; RESP 17; TEMP 37.1; O2SAT 98
--- NOTE | 2021-03-28 16:42 | P.HP_ITS ---
Providers/Chief Complaint Admitting Physician: Pete Alcocer MD Chief Complaint: si HPI NPU History of Present Illness Donny Casiano is a 30 year old male transferred from [facility] in the [place], [place], in whose ED he spent the last three days for reports of suicidal behavior after huffing an airduster. The patient describes a series of chaotic and stressful events after his last a dmission here. He became desperate for his to stay connected to him, and not in the relationship. When he felt this was in danger, he communicated that he was planning to kill himself. He went to the [facility] in [place], [place] on 03/24/2021, where he remained until he was transferred here yesterday, 03/27/2021. The transferring physician was concerned that the patient was still suicidal, and needed psychiatric hospitalization. The patient says he did really well after his discharge on 02/03/2021. Then, he says he started using meth with his sister, after never having used before, and used it for 12 days straight, from 02/22-03/05/2021. On the last day, he felt he was having a heart attack, and his called EMS. At the hospital [facility] was ruled out, that his learned that he had been using meth, because the ED did a urine tox screen. He went into the [facility] for 6 days at that point and was discharged on Effexor 150 mg, Abilify 5 mg and clonazepam 1 mg. The expectation was that he would not contact his sister, but he tried to call her with he learned that she was missing. This made his very and, and she said she was leaving him. The patient started inducing vomiting, but he says it messed with my stomach, causing him to feel nauseated even when he was not making himself throw up. So he started using medical marijuana to treat the nausea. By this time the patient's was very angry with him, and he became suicidal and was admitted to the [facility] ED. While all of this was going on, the patient says he was also working on getting the help he needed. He started going to [facility] [place], operated by [facility], who has enrolled him and his in couples counseling, and will provide him substance abuse counseling, and therapy. His work has provided him with 8 sessions of therapy, and he has seen a psychologist for the first 2 visits. He says that recently he had cut his eating back to twice a week, in an effort to lose weight. He met with the dietitian when he was inpatient at [facility], and she helped him with some realistic eating goals. He is also become involved with a restorationist-based program called [facility], and he finds his newly initiated druze involvement to be extremely supportive to him. He was previously an inpatient here from 01/26-02/03/21, and the discharge summary from that admission states: 30 year old male with unclear past psychiatric history presented to an [facility] emergency department after overdosing intentionally on multiple medications to include fluoxetine, phentermine, another diet pill/medication, Topamax, hydroxyzine, and Benadryl. Patient was observed for 24 hours at [facility] emergency department with work-up remarkable for tachycardia, elevated BP, EKG did not demonstrate any prolonged QT, CBC, chemistry unremarkable, cardiac enzymes unremarkable. Urine drug screen was also positive for cannabinoids which the patient states that he had been taking because of his abdominal discomfort related to his anxiety symptoms. Patient demonstrated severe anxiety symptoms as well as communicating ongoing obsessions related to his eating and various other rituals that cause significant impairment. Patient was also demonstrating stuttering as well as motor tics which appear to be unclear with his toxic ingestion versus severe anxiety. Patient was started on fluoxetine which was titrated up to fluoxetine 80 mg daily. Patient was having several panic attacks and anxiety related symptoms and was started on clonazepam which was scheduled and titrated up to clonazepam 1 mg twice daily in conjunction with Ativan as needed with eventual discontinuation of the Ativan and tapering off of clonazepam prior to discharge. Patient reported improvement in his anxiety symptoms with no stuttering or other motor tics that he was demonstrating at the time of his initial evaluation. Patient participate in unit activities to include group sessions and unit milieu with no reports of any behavioral disturbances. Patient was not suicidal and did not endorse any depressive symptoms at the time of discharge and did not appear to pose any threat of harm to self or others. Review of Systems General: Reports: 10 or more systems reviewed and unremarkable except in HPI and below Meds NPU Home Medications Medication Instructions Recorded Confirmed Last Taken Type lisinopril 10 mg PO DAILY 01/27/21 03/28/21 Unknown History pantoprazole 20 mg PO DAILY 01/27/21 03/28/21 Unknown History aripiprazole 10 mg PO DAILY 03/28/21 03/28/21 Unknown History fluoxetine 30 mg PO DAILY 03/28/21 03/28/21 Unknown History venlafaxine 150 mg PO DAILY 03/28/21 03/28/21 Unknown History Allergies Allergy/AdvReac Type Severity Reaction Status Date / Time No Known Drug Allergies Allergy Unknown Verified 01/26/21 22:37 PFSH NPU PFSH: Medical History (Updated 03/28/21 @ 20:11 by Pete Alcocer MD) Body dysmorphic disorder Bulimia nervosa Mental Status Exam MSE Comments: I met with the patient in the day room, and they were appropriately groomed and dressed wearing hospital scrubs, calm, cooperative, interactive, good eye contact. No psychomotor agitation or retardation Speech is at a regular rate and rhythm, normal volume, good articulation, not pressured Alert, oriented to person, place, time, situation Attention and concentration were intact. Able to spell the word WORLD correctly forwards and backwards. Memory is intact. He remembers 3/3 words immediately and 3/3 at 3 minutes. He knows the names of the past 5 presidents. Mood is improved. Affect is pleasant. Thought process, delayed, linear Thought content, denies auditory and visual hallucinations, no current suicidal ideation, no homicidal ideation. No delusions are noted. Insight and judgment appear to be fair Vitals/I&O/Wt Last Vital Signs Temp 98.7 F 03/28/21 13:47 Pulse 75 03/28/21 13:47 Resp 17 03/28/21 13:47 BP 135/62 03/28/21 13:47 Pulse Ox 98 03/28/21 13:47 Weight last 48 hrs Weight 113.398 kg A&P Assessment and plan (1) Adjustment disorder with mixed disturbance of emotions and conduct: Status: Acute (2) Anxiety: Status: Acute (3) Cannabis abuse: Status: Acute Additional A&P Information Patient is a 30-year-old man with a history of depression, anxiety, bulimia nerv hilda, body dysmorphic disorder, and cannabis abuse. He was admitted for increasing suicidal ideation as his life was spiraling out of control. By the time he was admitted, he had spent more than 3 days in the [facility] ED. During his stay there, he had time to reflect, and feels he has set a new direction for his life. 1. Continue current medication. 2. Continue every 15 minute checks for safety. 3. Encourage individual, group and milieu therapies. 4. Encourage sober living treatment after discharge at the highest level of care to which he is willing to commit. Involuntary Hold Information 96 Hour Hold: 96 Hour Involuntary Admission: No Attestations NPU Medical Necessity Statement*: Psychiatric hospitalization is medically necessary to prevent access to lethal means, to reevaluate medication, and to coordinate a safe discharge. Patient will be in the hospital for over 2 midnights. Anticipate discharge tomorrow if still stable. Coding Level of Care Code Acute Application Software Engineer for Lynn Slater Diagnoses Adjustment disorder with mixed disturbance of emotions and conduct F43.25 Anxiety F41.9 Cannabis abuse F12.10
[2021-03-28] MEDS: benzocaine 20% 7 gm 1 APPLIC MUCOUS MEM (17:53)
--- NOTE | 2021-03-28 19:49 | PC.NURSE ---
PM Assessment Heart and Lung sounds WNL, Pt denies AH/VH, Denies HI, endorses depression and SI, no plan, contracts for safety. Pt is resting in his room at this time.
[2021-03-28] MEDS: trazodone 50 mg Tablet PO (20:01)
[2021-03-28 20:11] VITALS: BP 141/90; PULSE 86; RESP 17; TEMP 36.6; O2SAT 99
--- NOTE | 2021-03-28 20:15 | PC.NURSE ---
Pt requested sleep med. Trazodone 50mg po given.
[2021-03-29 06:00] VITALS: BP 148/79; PULSE 122; RESP 18; TEMP 36.5; O2SAT 97
[2021-03-29] MEDS: ondansetron 4 MG Tablet PO (07:35)
--- NOTE | 2021-03-29 09:54 | P.DS_ITS ---
Diagnoses at Discharge Discharge Diagnosis (1) Adjustment disorder with mixed disturbance of emotions and conduct: Status: Acute (2) Anxiety: Status: Acute (3) Cannabis abuse: Status: Acute Reason for Visit Reason for Visit: si Brief History: Donny Casiano is a 30 year old male transferred from [facility] in the [place], [place], in whose ED he spent the last three days for reports of suicidal behavior after huffing an airduster. The patient describes a series of chaotic and stressful events after his last admission here. He became desperate for his to stay connected to him, and not in the relationship. When he felt this was in danger, he communicated that he was planning to kill himself. He went to the [facility] ED in [place], [place] on 03/24/2021, where he remained until he was transferred here yesterday, 03/27/2021. The transferring physician was concerned that the patient was still suicidal, and needed psychiatric hospitalization. The patient says he did really well after his discharge on 02/03/2021. Then, he says he started using meth with his sister, after never having used before, and used it for 12 days straight, from 02/22-03/05/2021. On the last day, he felt he was having a heart attack, and his called EMS. At the hospital [place] was ruled out, that his learned that he had been using meth, because the ED did a urine tox screen. He went into the [facility] for 6 days at that point and was discharged on Effexor 150 mg, Abilify 5 mg and clonazepam 1 mg. The expectation was that he would not contact his sister, but he tried to call her with he learned that she was missing. This made his very and, and she said she was leaving him. The patient started inducing vomiting, but he says it messed with my stomach, causing him to feel nauseated even when he was not making himself throw up. So he started using medical marijuana to treat the nausea. By this time the patient's was very angry with him, and he became suicidal and was admitted to the [facility] ED. While all of this was going on, the patient says he was also working on getting the help he needed. He started going to [facility], who has enrolled him and his in couples counseling, and will provide him substance abuse counseling, and therapy. His work has provided him with 8 sessions of therapy, and he has seen a psychologist for the first 2 visits. He says that recently he had cut his eating back to twice a week, in an effort to lose weight. He met with the dietitian when he was inpatient at [facility], and she helped him with some realistic eating goals. He is also become involved with a latter-day-based program called [facility], and he finds his newly initiated gnosticist involvement to be extremely supportive to him. He was previously an inpatient here from 01/26-02/03/21, and the discharge summary from that admission states: 30 year old male with unclear past psychiatric history presented to an [facility] emergency department after overdosing intentionally on multiple medications to include fluoxetine, phentermine, another diet pill/medication, Topamax, hydroxyzine, and Benadryl. Patient was observed for 24 hours at [facility] emergency department with work-up remarkable for tachycardia, elevated BP, EKG did not demonstrate any prolonged QT, CBC, chemistry unremarkable, cardiac enzymes unremarkable. Urine drug screen was also positive for cannabinoids which the patient states that he had been taking because of his abdominal discomfort related to his anxiety symptoms. Patient demonstrated severe anxiety symptoms as well as communicating ongoing obsessions related to his eating and various other rituals that cause significant impairment. Patient was also demonstrating stuttering as well as motor tics which appear to be unclear with his toxic ingestion versus severe anxiety. Patient was started on fluoxetine which was titrated up to fluoxetine 80 mg daily. Patient was having several panic attacks and anxiety related symptoms and was started on clonazepam which was scheduled and titrated up to clonazepam 1 mg twice daily in conjunction with Ativan as needed with eventual discontinuation of the Ativan and tapering off of clonazepam prior to discharge. Patient reported improvement in his anxiety symptoms with no stuttering or other motor tics that he was demonstrating at the time of his initial evaluation. Patient participate in unit activities to include group sessions and unit milieu with no reports of any behavioral disturbances. Patient was not suicidal and did not endorse any depressive symptoms at the time of discharge and did not appear to pose any threat of harm to self or others. Hospital Course Hospital Course Donny Casiano is a 30 year old male transferred from [facility] in the [place], [place], in whose ED he spent the last three days for reports of suicidal behavior after huffing an airduster. He was admitted to the neuropsychiatric unit for definitive treatment of these issues. The patient had an additional day to think after 3 days in the ED, and to have conversations with both the staff and his . He has put a number of plans in the place for his recovery, as described in the reason for admission. We discussed his intention to have a trial off of medication, as he feels his head is clear that it has been in a long time, since he has been off of psychiatric medication for 4+ days. We discussed warning signs of both substance use and mood disorder relapse, including how he manages setbacks. On the day of discharge, he was able to see how he might of handled the toothache differently in the past, and had growing confidence in his ability to manage setbacks differently than in the past. Depression and suicidal ideation resolved and he was able to contract for safety prior to discharge. Prior to hospitalization, patient had routine laboratory studies which were within normal limits except for few outliers. Additionally there was a general medical evaluation which was also within normal limits and revealed no new acute processes. Discharge Summary: At the time of discharge, psychosis and lethality were denied. Mood and anxiety were well managed. Patient endorsed a plan to avoid all drugs of abuse and follow-up with the aftercare recommendations of the treatment team. He was on no medications for psychiatric conditions. Patient was evaluated and deemed to be absent credible lethality, and had achieved the maximum benefit from an inpatient hospitalization, so was discharged. Involuntary Hold Information 96 Hour Hold: 96 Hour Involuntary Admission: No Mental Status Exam MSE Comments: I met with the patient in the day room, and they were appropriately groomed and dressed wearing hospital scrubs, calm, cooperative, interactive, good eye contact. He stated he had a tooth ache, and does look like he was in a moderate degree of pain. No psychomotor agitation or retardation Speech is at a regular rate and rhythm, normal volume, good articulation, not pressured Alert, oriented to person, place, time, situation Attention and concentration were intact to exam, but was distracted at times by the tooth pain. Memory is adequate for the interview Mood is euthymic. Affect is pleasant except when wincing in pain. Thought process is logical and goal directed. Thought content No auditory or visual hallucinations, no suicidal ideation or homicidal ideation. Insight and judgment are good. Discharge Data Vitals: Last Vital Signs Temp 97.7 F 03/29/21 06:00 Pulse 122 H 03/29/21 06:00 Resp 18 03/29/21 06:00 BP 148/79 03/29/21 06:00 Pulse Ox 97 03/29/21 06:00 Discharge Plan Discharge Patient Disposition: Home Condition: Stable Prescriptions: Continued lisinopril 5 mg tablet 10 mg PO DAILY RF: 0 pantoprazole 40 mg tablet,delayed release (DR/EC) 20 mg PO DAILY RF: 0 Discontinued aripiprazole 10 mg Tablet 10 mg PO DAILY RF: 0 fluoxetine 20 mg capsule 30 mg PO DAILY RF: 0 venlafaxine 150 mg Capsule,Extended Release 24hr 150 mg PO DAILY RF: 0 Discharge Orders: Discharge Order (Routine); Ordered 03/29/21 Ordered By: Pete Alcocer Referrals: [facility] [Other] [facility] [Other] [facility] [Other] Discharge Diet: Advance as tolerated and Usual diet Discharge Activity: Resume usual activity Patient Instructions: Opioid Safety Discharge Attestations NPU Time Spent in Discharge Care*: greater than 30 min Specific Discharge Activities: Specific discharge activities: educating patient, discussing with behavioral health case manager/social workers/dc planners, documenting/other paperwork and evaluating patient/reviewing data Status at Discharge: Cognitive status at discharge: cognitively intact , Behavioral status at discharge: cooperative , Functional status at discharge: independent ambulation Overall status at discharge: patient is back to baseline Coding Level of Care Code Acute Chg FW DC note Diagnoses Adjustment disorder with mixed disturbance of emotions and conduct F43.25 Anxiety F41.9 Cannabis abuse F12.10
[2021-03-29 09:55] VITALS: BP 148/79; PULSE 122; RESP 18; TEMP 36.5; O2SAT 97
--- NOTE | 2021-03-29 17:27 | P.DS_ITS ---
Diagnoses at Discharge Discharge Diagnosis (1) Adjustment disorder with mixed disturbance of emotions and conduct: Status: Resolved (2) Anxiety: Status: Chronic (3) Cannabis abuse: Status: Chronic Reason for Visit Reason for Visit: si Brief History: Donny Casiano is a 30 year old male transferred from [facility] in the [place], [place], in whose ED he spent the last three days for reports of suicidal behavior after huffing an airduster. The patient describes a series of chaotic and stressful events after his last admission here. He became desperate for his to stay connected to him, and not in the relationship. When he felt this was in danger, he communicated that he was planning to kill himself. He went to the [facility] in [place], [place] on 03/24/2021, where he remained until he was transferred here yesterday, 03/27/2021. The transferring physician was concerned that the patient was still suicidal, and needed psychiatric hospitalization. The patient says he did really well after his discharge on 02/03/2021. Then, he says he started using meth with his sister, after never having used before, and used it for 12 days straight, from 02/22-03/05/2021. On the last day, he felt he was having a heart attack, and his called EMS. At the hospital [place] was ruled out, that his learned that he had been using meth, because the ED did a urine tox screen. He went into the [facility] for 6 days at that point and was discharged on Effexor 150 mg, Abilify 5 mg and clonazepam 1 mg. The expectation was that he would not contact his sister, but he tried to call her with he learned that she was missing. This made his very and, and she said she was leaving him. The patient started inducing vomiting, but he says it messed with my stomach, causing him to feel nauseated even when he was not making himself throw up. So he started using medical marijuana to treat the nausea. By this time the patient's was very angry with him, and he became suicidal and was admitted to the [facility]. While all of this was going on, the patient says he was also working on getting the help he needed. He started going to [facility], who has enrolled him and his in couples counseling, and will provide him substance abuse counseling, and therapy. His work has provided him with 8 sessions of therapy, and he has seen a psychologist for the first 2 visits. He says that recently he had cut his eating back to twice a week, in an effort to lose weight. He met with the dietitian when he was inpatient at [facility], and she helped him with some realistic eating goals. He is also become involved with a oriental orthodox-based program called [facility], and he finds his newly initiated latter day involvement to be extremely supportive to him. He was previously an inpatient here from 01/26-02/03/21, and the discharge summary from that admission states: 30 year old male with unclear past psychiatric history presented to an [facility] emergency department after overdosing intentionally on multiple medications to include fluoxetine, phentermine, another diet pill/medication, Topamax, hydroxyzine, and Benadryl. Patient was observed for 24 hours at [facility] emergency department with work-up remarkable for tachycardia, elevated BP, EKG did not demonstrate any prolonged QT, CBC, chemistry unremarkable, cardiac enzymes unremarkable. Urine drug screen was also positive for cannabinoids which the patient states that he had been taking because of his abdominal discomfort related to his anxiety symptoms. Patient demonstrated severe anxiety symptoms as well as communicating ongoing obsessions related to his eating and various other rituals that cause significant impairment. Patient was also demonstrating stuttering as well as motor tics which appear to be unclear with his toxic ingestion versus severe anxiety. Patient was started on fluoxetine which was titrated up to fluoxetine 80 mg daily. Patient was having several panic attacks and anxiety related symptoms and was started on clonazepam which was scheduled and titrated up to clonazepam 1 mg twice daily in conjunction with Ativan as needed with eventual discontinuation of the Ativan and tapering off of clonazepam prior to discharge. Patient reported improvement in his anxiety symptoms with no stuttering or other motor tics that he was demonstrating at the time of his initial evaluation. Patient participate in unit activities to include group sessions and unit milieu with no reports of any behavioral disturbances. Patient was not suicidal and did not endorse any depressive symptoms at the time of discharge and did not appear to pose any threat of harm to self or others. Hospital Course Hospital Course Donny Casiano is a 30 year old male transferred from [facility] in the [place], [place], in whose ED he spent the last three days for reports of suicidal behavior after huffing an airduster. He was admitted to the neuropsychiatric unit for definitive treatment of these issues. The patient had an additional day to think after 3 days in the ED, and to have conversations with both the staff and his . He has put a number of plans in the place for his recovery, as described in the reason for admission. We discussed his intention to have a trial off of medication, as he feels his head is clear that it has been in a long time, since he has been off of psychiatric medication for 4+ days. We discussed warning signs of both substance use and mood disorder relapse, including how he manages setbacks. On the day of discharge, he was able to see how he might of handled the toothache differently in the past, and had growing confidence in his ability to manage setbacks differently than in the past. Depression and suicidal ideation resolved and he was able to contract for safety prior to discharge. Prior to hospitalization, patient had routine laboratory studies which were within normal limits except for few outliers. Additionally there was a general medical evaluation which was also within normal limits and revealed no new acute processes. Discharge Summary: At the time of discharge, psychosis and lethality were denied. Mood and anxiety were well managed. Patient endorsed a plan to avoid all drugs of abuse and follow-up with the aftercare recommendations of the treatment team. He was on no medications for psychiatric conditions. Patient was evaluated and deemed to be absent credible lethality, and had achieved the maximum benefit from an inpatient hospitalization, so was discharged. Involuntary Hold Information 96 Hour Hold: 96 Hour Involuntary Admission: No Mental Status Exam MSE Comments: The patient made good eye contact and was cooperative and open to the exam. No psychomotor agitation or retardation. Speech was had a regular rate and rhythm without pressure. Alert and oriented to person, place, time, and situation. Attention and concentration were intact to exam Memory was fairly good to exam. Mood is improved without depression and anxiety. Affect is brighter. Thought process: Logical and goal directed. No racing thoughts or flight of ideas. Thought content: Denies auditory and visual hallucinations. There are no delusions noted. No suicidal or homicidal ideation. Has future-oriented goals. Insight and judgment are improved and adequate. Discharge Data Vitals: Last Vital Signs Temp 97.7 F 03/29/21 09:55 Pulse 122 H 03/29/21 09:55 Resp 18 03/29/21 09:55 BP 148/79 03/29/21 09:55 Pulse Ox 97 03/29/21 09:55 Discharge Plan Discharge Patient Disposition: Home Condition: Stable Prescriptions: Continued lisinopril 5 mg tablet 10 mg PO DAILY RF: 0 pantoprazole 40 mg tablet,delayed release (DR/EC) 20 mg PO DAILY RF: 0 Discontinued aripiprazole 10 mg Tablet 10 mg PO DAILY RF: 0 fluoxetine 20 mg capsule 30 mg PO DAILY RF: 0 venlafaxine 150 mg Capsule,Extended Release 24hr 150 mg PO DAILY RF: 0 Discharge Orders: Discharge Order (Routine); Ordered 03/29/21 Ordered By: Pete Alcocer Referrals: [facility] [Other] [facility] [Other] [facility] [Other] Discharge Diet: Advance as tolerated and Usual diet Discharge Activity: Resume usual activity Patient Instructions: Opioid Safety Discharge Attestations NPU Time Spent in Discharge Care*: less than 30 min Specific Discharge Activities: Specific discharge activities: educating patient, discussing with correctional counselor/case manager/social workers/dc planners, documenting/other paperwork and evaluating patient/reviewing data Status at Discharge: Cognitive status at discharge: cognitively intact , Behavioral status at discharge: cooperative , Functional status at discharge: independent ambulation Overall status at discharge: patient is back to baseline Coding Level of Care Code Acute Chg FW DC note Diagnoses Adjustment disorder with mixed disturbance of emotions and conduct F43.25 Anxiety F41.9 Cannabis abuse F12.10
== END 2021-03-29 10:00 | disposition home or self-care (01) | DRG 882 ==
PROVIDERS: Admitting Provider Psychiatry & Neurology Child & Adolescent Psychiatry; Visit Provider Psychiatry & Neurology Child & Adolescent Psychiatry
DX: F43.25 Adjustment disorder with mixed disturbance of emotions and conduct (principal); F50.2 Bulimia nervosa; R45.851 Suicidal ideations; F32.9 Major depressive disorder, single episode, unspecified; F41.9 Anxiety disorder, unspecified; F12.10 Cannabis abuse, uncomplicated; F45.22 Body dysmorphic disorder; Z68.35 Body mass index [BMI] 35.0-35.9, adult; Z63.0 Problems in relationship with spouse or partner
CPT/HCPCS: Q0162